=== PATIENT | female | born 1965 | race Caucasian/White ===

== ENCOUNTER 2018-04-16 00:15 | Emergency (ER) | payer MEDICAID ==
[~2018-04-16] VITALS: Ht 160 cm; Wt 56.7 kg
[2018-04-16 01:49] LABS: Basophils # (auto) 0.1 uL; Basophils % (auto) 0.7 % (0.0-2.0); Eosinophils # (auto) 0.1 uL; Eosinophils % (auto) 1.6 % (0.0-7.0); Hematocrit 41.5 % (36.0-46.0); Hemoglobin 13.7 g/dL (12.2-16.2); Lymphocytes # (auto) 1.8 uL; Lymphocytes % (auto) 20.6 % (10.0-50.0); Mean Corpuscular Hemoglobin 30.3 pg (28.0-32.0); Mean Corpuscular Volume 91.9 fL (80.0-100.0); Monocytes # (auto) 0.6 uL; Monocytes % (auto) 6.2 % (0.0-12.0); Neutrophils # (auto) 6.4 uL; Neutrophils % (auto) 70.9 % (37.0-80.0); Platelet Count (auto) 278 10^3/uL (140-450); Red Blood Cells 4.52 10^6/uL (4.0-5.20); Red Cell Distribution Width 14.3 % (11.8-14.3)
[2018-04-16] MEDS ORDERED: NITROGLYCERIN 0.4 MG SL TAB SL ONE (02:00)
[2018-04-16] MEDS ORDERED: ASPirin 81 mg TAB PO ONE (02:00)
[2018-04-16 02:05] LABS: Partial Thromboplastin Time 27.1 sec (23.78-33.04); Prothrombin Time 10.7 sec (9.27-12.13)
[2018-04-16 02:08] LABS: Alanine Aminotransferase 22 U/L (13-56); Albumin 3.5 g/dL (3.4-5.0); Anion Gap 9 (5-15); Aspartate Aminotransferase 19 U/L (15-37); BUN/Creatinine Ratio 17.6; Blood Urea Nitrogen 16 mg/dL (7-18); Calcium 8.8 mg/dL (8.5-10.1); Carbon Dioxide 23 mmol/L (21-32); Chloride 107 mmol/L (98-107); GFR African American 83 mL/min; GFR Non-African American 69 mL/min; Glucose 111 mg/dL (74-106); Magnesium 2.2 mg/dL (1.6-2.6); Potassium 4.1 mmol/L (3.5-5.1); Sodium 139 mmol/L (136-145)
[2018-04-16 02:13] LABS: Alkaline Phosphatase 76 U/L (45-117); Bilirubin, Total 0.4 mg/dL (0.2-1.0); Total Protein 6.9 g/dL (6.4-8.2)
[2018-04-16 02:20] VITALS: BP 121/77
[2018-04-16] MEDS ORDERED: TUBERCULIN PPD 5 UNIT/0.1 ML ID ONE (03:00)
== END 2018-04-16 03:34 | disposition home or self-care (01) ==
LOC: ER 00:22
DX: R07.9 Chest pain, unspecified (principal); J44.9 Chronic obstructive pulmonary disease, unspecified; F17.210 Nicotine dependence, cigarettes, uncomplicated; F12.90 Cannabis use, unspecified, uncomplicated; F15.90 Other stimulant use, unspecified, uncomplicated
CPT/HCPCS: 36415; 71045; 80053; 83735; 83880; 84443; 84484; 85025; 85610; 85730; 93005; 94761